=== PATIENT | female | born 1965 | race Caucasian/White ===

== ENCOUNTER 2017-11-12 12:43 | Day surgery (SDC) | payer OTHER ==
[2017-11-12] MEDS ORDERED: FENTAnyl 50 MCG/ML VIAL (14:25)
[2017-11-12] MEDS ORDERED: MIDAZOLAM 1 MG/ML 2 ML INJ ×2 (14:25)
== END 2017-11-12 16:06 | disposition home or self-care (01) ==
LOC: GIL 12:43
DX: Z12.11 Encounter for screening for malignant neoplasm of colon (principal); K64.0 First degree hemorrhoids; Z85.3 Personal history of malignant neoplasm of breast
CPT/HCPCS: 45378